=== PATIENT | female | born 1960 | race Caucasian/White ===

== ENCOUNTER 2025-03-01 06:50 | Day surgery (SDC) | payer BC ==
[~2025-03-01 06:50] MED LIST: Sodium Chloride 0.9% 10 ML Syringe FLUSH PRN
[2025-03-01] MEDS ORDERED: Ketamine 500 mg/10 ML MDV IV ONE (06:51)
[2025-03-01] MEDS ORDERED: Succinylcholine 200 MG/10 ML MDV IV ONE (06:51)
[2025-03-01] MEDS ORDERED: Midazolam 1 MG/ML 2 ML SDV IV ONE (06:51)
[2025-03-01] MEDS ORDERED: Dexamethasone 4 MG/ML 5 ML MDV IVPUSH ONE (06:51)
[2025-03-01] MEDS ORDERED: Propofol 200 MG/20 ML SDV IV ONE (06:51)
[2025-03-01] MEDS ORDERED: Scopalamine 1mg/3day Transdermal Patch TOP ONE (06:51)
[2025-03-01] MEDS ORDERED: fentaNYL 100 MCG/2 ML SDV IV ONE (06:51)
[2025-03-01] MEDS ORDERED: Lidocaine 1% PF 2 ML SDV IV ONE (06:51)
[2025-03-01] MEDS ORDERED: Glycopyrrolate 0.2 MG/ML 5 ML MDV IV ONE (06:51)
[2025-03-01] MEDS ORDERED: Rocuronium 100 MG/10 ML MDV IV ONE (06:51)
[2025-03-01] MEDS ORDERED: Ondansetron 4 MG/2 ML SDV IVPUSH ONE (06:51)
[2025-03-01] MEDS: Lactated Ringers 1,000 ML IV SCH ×2 (07:44→15:28)
[2025-03-01] MEDS: Lidocaine 1% with EPINEPHrine 1:100,000 20 ML MDV INJECT ONE (08:30)
[2025-03-01] MEDS ORDERED: Naloxone 0.4 MG/ML SDV IVPUSH PRN (10:44)
[2025-03-01] MEDS: Ondansetron 4 MG/2 ML SDV IVPUSH ONE (11:13)
[2025-03-01] MEDS: fentaNYL 100 MCG/2 ML SDV IVPUSH PRN (14:41)
== END 2025-03-01 18:00 ==
LOC: FB.SDS 06:50 → FB.MS 15:00 → FB.SDS 18:00 → FB.MS 18:00
PROVIDERS: ATTEND Surgery
DX: K80.10 Calculus of gallbladder with chronic cholecystitis without obstruction (principal); K82.8 Other specified diseases of gallbladder; E66.9 Obesity, unspecified; I10 Essential (primary) hypertension; Z86.16 Personal history of COVID-19; Z68.34 Body mass index [BMI] 34.0-34.9, adult; Z79.899 Other long term (current) drug therapy
CPT/HCPCS: 00790; 47562; 88304; A9270; J0330; J0665; J1100; J1596; J2003; J2004; J2250; J2405; J2704; J2710; J3010; J3490; J7120